=== PATIENT | male | born 1980 | race Caucasian/White ===

== ENCOUNTER → 2019-03-31 | Outpatient (CLI) | payer OTHER | LOC: RAD 15:03 | DX: R07.9 Chest pain, unspecified (principal) ==

== ENCOUNTER → 2019-04-16 | Outpatient (CLI) | payer OTHER | LOC: RAD 17:36 | DX: M54.12 Radiculopathy, cervical region (principal); R20.0 Anesthesia of skin ==

== ENCOUNTER → 2019-12-05 | Outpatient (CLI) | payer OTHER | LOC: LAB 10:29 | PROVIDERS: ATTEND Family Medicine | DX: Z20.828 Contact with and (suspected) exposure to other viral communicable diseases (principal) ==